=== PATIENT | male | born 1935 | race Caucasian/White ===

== ENCOUNTER 2016-11-26 11:32 | Day surgery (SDC) | payer MEDICARE, OTHER ==
[~2016-11-26 11:32] MED LIST: AMLODIPINE BESYL5 MG PO; CARVEDILOL25 M1 PO; COREG12.5 M1 PO; FUROSEMIDE40 M2 PO; HYDROCODON-ACE1 EA16 PO; LEVOTHYROXINE88 MC2 PO; LISINOPRIL20 M1 PO; RENVELA800 M1 PO; TUMS200 MG PO; TUMS300 M1 PO
== END 2016-11-26 15:45 ==
LOC: RADSP 11:32 → SHSB 11:35
PROC: 037C3ZZ Dilation of Left Radial Artery, Percutaneous Approach (ICD-10-PCS; principal; 2016-11-26)
DX: T82.858A Stenosis of other vascular prosthetic devices, implants and grafts, initial encounter (principal); I12.0 Hypertensive chronic kidney disease with stage 5 chronic kidney disease or end stage renal disease; N18.6 End stage renal disease; Z79.899 Other long term (current) drug therapy; Y83.8 Other surgical procedures as the cause of abnormal reaction of the patient, or of later complication, without mention of misadventure at the time of the procedure; Z98.890 Other specified postprocedural states
CPT/HCPCS: C1725; C1769; C1887; J1644; J2250; J3010; Q9967